=== PATIENT | male | born 1970 | race Caucasian/White ===

== ENCOUNTER 2017-03-30 10:41 | Emergency (ER) | payer MEDICAID ==
[~2017-03-30] VITALS: Ht 172.7 cm; Wt 117.9 kg
[2017-03-30 10:52] VITALS: BP 140/83
== END 2017-03-30 11:19 | disposition home or self-care (01) ==
LOC: ER 10:46
DX: G89.29 Other chronic pain (principal); M54.5 Low back pain; Z76.0 Encounter for issue of repeat prescription

== ENCOUNTER 2017-04-28 04:29 | Observation (INO) | payer MEDICAID ==
[~2017-04-28] VITALS: Ht 172.7 cm; Wt 124.7 kg
[2017-04-28] MEDS ORDERED: SODIUM CHLORIDE 0.9% 1,000 ML IVB ONE (07:11)
[2017-04-28] MEDS ORDERED: cefTRIAXone 1GM/50ML D5W AE IV ONE (07:15)
[2017-04-28] MEDS ORDERED: TETANUS-DIPTH-ACEL PERTUSSIS 0.5ML SYRG IM ONE (07:15)
[2017-04-28 08:33] LABS: Urine Bilirubin Negative (Negative); Urine Blood TRACE /uL (Negative); Urine Color Yellow (Yellow); Urine Glucose Normal (Normal); Urine Ketone Negative (Negative); Urine Nitrite Negative (Negative); Urine RBC 6 /hpf (0 - 3); Urine Squamous Epithelial Cell FEW /hpf (<5); Urine Urobilinogen Normal (Negative); Urine pH 5.5 (5.0-8.0)
[2017-04-28 08:35] LABS: Basophils # (auto) 0 uL; Basophils % (auto) 0.2 % (0.0-2.0); CONDITION Y; Eosinophils # (auto) 0 uL; Eosinophils % (auto) 0.1 % (0.0-7.0); Hematocrit 45.8 % (41.0-53.0); Hemoglobin 15.4 g/dL (13.5-17.5); Lymphocytes # (auto) 1.9 uL; Lymphocytes % (auto) 13.7 % (10.0-50.0); Mean Corpuscular Hemoglobin 28.4 pg (28.0-32.0); Mean Corpuscular Hgb Conc. 33.7 g/dL (32.0-36.0); Mean Corpuscular Volume 84.5 fL (80.0-100.0); Mean Platelet Volume 9.8 fL (7.4-10.4); Monocytes # (auto) 0.7 uL; Monocytes % (auto) 5.3 % (0.0-12.0); Neutrophils # (auto) 11.3 uL; Neutrophils % (auto) 80.7 % (37.0-80.0); Platelet Count (auto) 285 10^3/uL (140-450); Red Cell Distribution Width 14.1 % (11.6-16.0)
[2017-04-28 08:44] LABS: Albumin 3.5 g/dL (3.4-5.0); Alkaline Phosphatase 104 U/L (45-117); Anion Gap 7 (5-15); Aspartate Aminotransferase 19 U/L (15-37); BUN/Creatinine Ratio 7.7; Bilirubin, Total 0.4 mg/dL (0.2-1.0); Blood Urea Nitrogen 9 mg/dL (7-18); Calcium 8.6 mg/dL (8.5-10.1); Carbon Dioxide 24 mmol/L (21-32); Chloride 107 mmol/L (98-107); GFR African American 86 mL/min; GFR Non-African American 71 mL/min; Glucose 130 mg/dL (74-106); Magnesium 2.8 mg/dL (1.6-2.6); Potassium 3.9 mmol/L (3.5-5.1); Sodium 138 mmol/L (136-145)
[2017-04-28] MEDS ORDERED: SODIUM CHLORIDE 0.9% 1,000 ML IV ONE (14:00)
[2017-04-28] MEDS ORDERED: SODIUM CHLORIDE 0.9% 2,000 ML IV ONE (18:45)
[2017-04-28 21:38] VITALS: BP 145/76
== END 2017-04-28 20:43 | disposition home or self-care (01) | DRG 384 ==
LOC: EDBD 04:29 → ER 04:37 → OVERFLOW 07:15 → ER 20:43
PROVIDERS: ADMIT Emergency Medicine; ATTEND Emergency Medicine
DX: S01.01XA Laceration without foreign body of scalp, initial encounter (principal); S41.112A Laceration without foreign body of left upper arm, initial encounter; E66.01 Morbid (severe) obesity due to excess calories; F15.10 Other stimulant abuse, uncomplicated; T14.8 Other injury of unspecified body region; Y08.89XA Assault by other specified means, initial encounter; Y93.89 Activity, other specified; Y92.89 Other specified places as the place of occurrence of the external cause; Y99.8 Other external cause status; Z68.44 Body mass index [BMI] 60.0-69.9, adult
CPT/HCPCS: 12032; 36415; 70450; 71010; 73110; 73130; 80053; 80307; 80320; 81001; 82962; 83735; 85025; 90471; 90715; 93005; 96361; 96374; 99285; G0378; J0696; J7030